=== PATIENT | male | born 1995 | race Caucasian/White ===

== ENCOUNTER 2025-01-19 19:20 | Emergency (ER) | payer OTHER, SELFPAY ==
[2025-01-19 19:26] VITALS: BP 162/96; PULSE 85; RESP 16; TEMP 36.7; O2SAT 98; BMI 37.3
--- NOTE | 2025-01-19 19:36 | CRLHL7_ITS ---
For Patients: As a result of the Cures Act, medical imaging exams and procedure reports are released immediately into your electronic medical record. You may view this report before your referring provider. If you have questions, please contact your health care provider. INDICATION: Left-sided rib pain. TECHNIQUE: Chest and left ribs three views. COMPARISON: None. FINDINGS: No pneumothorax or pleural effusion. Lungs are clear. Cardiac and mediastinal contours are within normal limits. Upper abdomen and osseous structures as imaged show no acute abnormality. No acute displaced left rib fracture. IMPRESSION: No evidence of acute cardiopulmonary disease or displaced left rib fracture. Dictated by Kory Bonner MD @ 01/19/2025 8:04:14 PM (Electronically Signed)
--- OUTSIDE RECORDS SUMMARY | 2025-01-19 20:06 | XMS_ITS | Clinical Summary ---
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 180 mL 12 2 Active CPAPIndications:O SA (obstructive sleep apnea),Snoring New CPAP machine for home use at pressure: 5-18 cmw , Heated humidifier x 1 q 5 yr, Humidifier chamber x 1 q 6 mo, Full face mask x1 q 3mos, with cushion x 1 q mo, Heated tubing x 1 q 3 mo, Headgear x 1 q 6 mo, Filters: Disposable x 2 q mo non-disposable filters x1 q 6mo, Length of Need: 99 months, Frequency of use: Daily 1 Each 11 3 Active budesonide-formot Lynette (Symbicort) 160-4.5 mcg/actuation (160-4.5 mcg each actuation) inhalerIndication s:Moderate persistent asthma without complication (HC) Inhale 2 Puffs by mouth two times daily. 1 Each 4 3 Active cetirizine (ZYRTEC) 10 mg tabletIndications :Hayfever TAKE 1 TABLET BY MOUTH ONCE DAILY. 90 Tablet 1 4 Active lisinopriL (PRINIVIL; ZESTRIL) 20 mg tabletIndications :Hypertension, unspecified type Take 1 Tablet (20 mg) by mouth once daily. 90 Tablet 3 4 Active albuterol HFA (ProAir HFA) 90 mcg/actuation inhalerIndication s:Moderate persistent asthma with exacerbation (HC) Inhale 1-2 Puffs by mouth every 6 hours if needed for Shortness of Breath 1st choice. 1 Each 12 4 Active minocycline (MINOCIN) 100 mg capsuleIndication s:Recurrent boils Take 1 Capsule (100 mg) by mouth two times daily. 180 Capsule 3 4 Active gabapentin (NEURONTIN) 300 mg capsuleIndication s:Lumbar radiculopathy Take 1 Capsule (300 mg) by mouth at bedtime. 30 Capsule 2 4 Active tiZANidine (ZANAFLEX) 4 mg tabletIndications :Lumbar radiculopathy Take 1 Tablet (4 mg) by mouth every 8 hours if needed for Muscle Spasm. 24 Tablet 1 4 Active celecoxib (CELEBREX) 200 mg capsuleIndication s:Lumbar radiculopathy Take 1 Capsule (200 mg) by mouth two times daily with meals. 60 Capsule 1 4 Active hydrOXYzine HCL (ATARAX) 25 mg tabletIndications :Rash Take 1 Tablet (25 mg) by mouth every 6 hours if needed for Itching. 25 Tablet 4 Active triamcinolone (ARISTOCORT; KENALOG) 0.1 % creamIndications: Rash Apply topically to affected area(s) three times daily. 80 g 4 Active lisinopriL (PRINIVIL; ZESTRIL) 20 mg tabletIndications :Hypertension, unspecified type Take 1 Tablet (20 mg) by mouth once daily. 30 Tablet 5 Active azithromycin (Zithromax Z-Matteo) 250 mg tabletIndications :Bronchitis with bronchospasm Take 500 mg (2 tabs) by mouth on day 1, then 250 mg (1 tab) daily for days 2-5. 6 Tablet 5 Active benzonatate (TESSALON) 100 mg capsuleIndication s:Bronchitis with bronchospasm Take 1 Capsule (100 mg) by mouth 3 times daily if needed for Cough. 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 Hernandez Cornea abrasion 12/09/2014 09/25/2017 Encounters Date Type Department Care Team Description 10/26/2024 9:30 AM DIRECTOR PROCESS Ancillary Procedure [facility] [address] [place] [address] 10/26/2024 8:35 AM DIRECTOR PROCESS Office Visit [facility] [address] [place] [address] Eliza Soto PA URI (Cough, chest congestion and high blood pressure x week ) 10/26/2024 Travel from Last 3 Months Immunizations Immunization Administration Dates Next Due DTP 03/04/1998, 7,03/26/1997,01/24 DTaP 05/16/2009,01/22/2002 Hepatitis A (Peds) 04/16/2015,10/02/2014 Hepatitis B (Peds) 05/27/1997,01/24/1997, 997 Hib Conjugate, Unspecified 03/04/1998,,03/26/1997,01/24 Human Papilloma Virus Vaccine 04/16/2015, 015,10/02/2014 Inactivated Polio Vaccine 01/22/2002 Influenza, IIV3 (Age >=3 years) 10/08/2002,11/04 /2002 Influenza, IIV4 08/23/2018,10/02/2014 MENINGOCOCCAL VACCINE 2 VIAL 2MO-55YO (MENVEO) 10/02/2014 MMR 05/16/2009,03/04/1998 Oral Polio Vaccine 03/04/1998,03/26/1997, 997 Pneumococcal Conj 20-valent (Prevnar 20) 03/29/2024 Td (Age >=7 Years) 04/13/2019 Tdap 10/02/2014,05/16/2009 Varicella Vaccine 05/16/2009,01/13/1999 Family History Medical History Relation Name Comments Hypertension Father Alzheimer's disease Maternal Grandmother Hypertension Mother Relation Name Status Comments Father Alive Maternal Grandfather Alive Maternal Grandmother Mother Alive Paternal Grandfather Paternal Grandmother Alive Social History Tobacco Use Types Packs/Day Years Used Date Smoking Tobacco: Former Smokeless Tobacco: Never Tobacco Cessation:Counseling Given: Yes Alcohol Use Standard Drinks/Week Comments Yes 0 (1 standard drink = 0.6 oz pur e alcohol) rarelly PHQ-2 Answer Date Recorded PHQ-2 TOTAL SCORE 0 02/15/2023 Social Connections Answer Date Recorded Do you often feel lonely or isolated from those around you? 0 03/29/2024 Financial Resource Strain Answer Date R ecorded Difficulty of Paying Living Expenses 3 03/29/2024 Difficulty of Paying Living Expenses Not on file 03/29/2024 Food Insecurity Answer Date Recorded Do you worry your food will run out before you are able to buy more? 1 03/29/2024 Transportation Needs Answer Date Record ed Does lack of transportation keep you from medica l appointments? 1 03/29/2024 Does lack of transportation keep you from work, meetings or getting things that you need? 1 03/29/2024 Housing Stability Answer Date Recorded What is your housing situation today? 1 03/29/2024 Utilities Answer Date Recorded Do you have trouble paying f or utilities (for example, heat, electricity, water, phone)? 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 Not on file Not on file Not on file Obstetrics History Last Filed Vital Signs Vital Sign Reading Time Taken Comments Blood Pressure 150/90 10/26/2024 8:38 AM DIRECTOR PROCESS Pulse 107 10/26/2024 8:38 AM DIRECTOR PROCESS Temperature 36.6 C (97.8 F) 10/26/2024 8:38 AM DIRECTOR PROCESS Respiratory Rate 18 12/08/2023 12:43 PM DIRECTOR PROCESS Oxygen Saturation 100% 10/26/2024 8:38 AM DIRECTOR PROCESS Inhaled Oxygen Concentration - - Weight 119.3 kg (263 lb) 10/26/2024 8:38 AM DIRECTOR PROCESS Height 179 cm (5' 10.47) 08/04/2023 9:12 AM CDT Body Mass Index 37.23 08/04/2023 9:12 AM CDT Plan of Treatment Health Maintenance Due Date Last Done Comments HIV for age 15-65 2011 Hepatitis C screening for ag e 18-79 2014 Depression screening for age 12+ 02/16/2024 02/15/2023, 01/11/2022, 01/06/2021, Additional history exists COVID-19 vaccine series ( season) 2024 12/23/2021, 11/12/2021 Influenza Vaccine (#1) 2024 8, 10/02/2014, 10/08/2002, Additional history exists BMI (ht and wt on same day) for age 18+ 08/04/2024 08/04/2023, 07/25/2023, 02/15/2023, Additional history exists Tetanus booster 04/13/2029 04/13/2019, 09/23, 05/16/2009 Tdap Completed 10/02/2014, 05/16/2009 Pneumococcal series for age 6-49 Completed 03/29/20 24 Procedures Procedure Name Priority Date/Time Associated Diagnosis Comments XR CHEST 2 VIEWS PA AND LATERAL CLIFF 10/26/2024 9:21 AM DIRECTOR PROCESS Bronchitis with bronchospasm Moderate persistent asthma with exacerbation (HC) Wheezing from Last 3 Months Results * XR CHEST 2 VIEWS PA AND LATERAL (10/26/2024 9:21 AM DIRECTOR PROCESS) Anatomical Region Laterality Modality CHEST, THORAX, Lung, HEART Compu cipriano Radiography 10/26/2024 2:16 PM DIRECTOR PROCESS Impressions 10/26/2024 2:16 PM DIRECTOR PROCESS No acute findings. Dictated by Prashanth Correa MD @ 10/26/2024 2:16:21 PM (Electronically Signed) Narrative 10/26/2024 2:16 PM DIRECTOR PROCESS For Patients: As a result of the Cures Act, medical imaging exams and procedure reports are released immediately into your electronic medical record. You may view this report before your referring provider. If you have questions, please contact your health care provider. INDICATION: Bronchitis with bronchospasm TECHNIQUE: Chest 2 views COMPARISON: 12/08/2023 FINDINGS: Cardiovascular and mediastinum: Heart size and vasculature are normal in caliber and appearance. Lungs and pleural spaces: Lungs are clear. No sign of infiltrate or mass. No sign of pleural effusion. No pneumothorax. Bones and soft tissues: No significant findings. Procedure Note Prashanth Correa MD - 10/26/2024 For Patients: As a result of the Cures Act, medical imagingexams and procedure reports are released immediately into your electronicmedical record. You may view this report before your referring provider.If you have questions, please contact your health care provider. INDICATION: Bronchitis with bronchospasm TECHNIQUE: Chest 2 views COMPARISON: 12/08/2023 FINDINGS: Cardiovascular and mediastinum: Heart size and vasculature are normal incaliber and appearance. Lungs and pleural spaces: Lungs are clear. No sign of infiltrate ormass. No sign of pleural effusion. No pneumothorax. Bones and soft tissues: No significant findings. IMPRESSION: No acute findings. Dictated by Prashanth Correa MD @ 10/26/2024 2:16:21 PM (Electronically Signed) [facility] Final Result from Last 3 Months Insurance [employer] Care Teams Electric Razor Mechanic Relationship Specialty Start Date End Date Tara Mcarthur MD [address] [place] [address] PCP - General Family Practice 02/21/24
[2025-01-19 20:19] LABS: PCR FLU A Negative PCR FLU A (Negative); PCR FLU B Negative PCR FLU B (Negative); PCR RSV Negative PCR RSV (Negative); SARS PCR* Negative SARS-CoV-2 (Negative)
[2025-01-19 20:37] VITALS: BP 154/85; PULSE 80; RESP 16; TEMP 36.7; O2SAT 98
[2025-01-19 20:38] VITALS: BP 154/85; PULSE 80; RESP 16; TEMP 36.7
--- NOTE | 2025-01-19 20:38 | ED_ITS ---
HPI - Chest Pain General Date Seen: 01/19/25 Chief Complaint: Cough Stated Complaint: L rib pain Time Seen by Provider: 01/19/25 19:29 Source: patient Mode of arrival: ambulatory Limitations: no limitations History of Present Illness HPI narrative: Patient is a very nice 29-year-old gentleman who was coughing yesterday he has been sick with a cough for last 2-3 days, using his inhaler 4 to 5 times a day, and yesterday while he was having a coughing jag noted left-sided chest discomfort, well he takes a deep breath in. ER to rule out any significant problems with this. Denies a fevers chills, has a history of asthma, and has an inhaler that he feels is approximately half full. Says he has no shortness of breath with this, has been on asthma medications is almost his entire life, with previous at exacerbations with prednisone. Is a nonsmoker, no history of intubations or other issues. Prior episodes: Yes Risk Factors Coronary artery disease risk factors: none Thoracic aortic dissection risk factors: none Related Data Home Medications ?Medication ?Instructions ?Recorded ?Confirmed cetirizine .ROUTE 01/19/25 lisinopril 20 mg tablet 20 mg PO DAILY 01/19/25 01/19/25 Allergies Allergy/AdvReac Type Severity Reaction Status Date / Time cefprozil (From Cefzil) AdvReac Verified 01/19/25 19:28 Review of Systems Status of ROS Reports: 10 or more systems reviewed and unremarkable except as noted in History and below [facility] Medical History Hypertension ?I10 - Essential (primary) hypertension (ICD-10) Surgical History No significant past surgical history Social History Smoking Status: Never smoker Second hand tobacco smoke exposure: No How often do you have a drink containing alcohol: never AUDIT-C Alcohol total score: 0 Non-prescribed substance use: denies use Exam Narrative Exam Narrative: On examination he is in no apparent distress. Pleasant and alert. Pupils equal round reactive to light there is no scleral icterus redness TMs are normal oropharynx normal, neck is supple chest is clear bilaterally with occasional expiratory wheezes noted. No signs respiratory distress, heart sounds normal, speaking to me in full sentences, no leg swelling no edema, negative Homans sign. Const Vital Signs, click to edit/add: Vital Signs - 24 hr 01/19/25 19:26 Temperature 98.0 F Pulse Rate [Pulse Oximeter] 85 Respiratory Rate 16 Blood Pressure [Left Upper Arm] 162/96 H Pulse Oximetry 98 Oxygen Delivery Method Room Air Documenting provider has reviewed patient's vital signs: yes Course Course ED Course: I discussed with him, that I do not see any evidence of an abnormality on chest x-ray nor did the radiologist, I do recommend that he use some prednisone for his wheezing, says he thinks he maybe has some anxiety in feel so much better and does not have any chest pain currently. Think it be reasonable let him go home, he is at low risk to have a pulmonary embolism or any coronary disease secondary to this. Vital Signs Vital signs: Initial Vital Signs Temperature 98.0 F 01/19/25 19:26 Temperature Source Temporal Artery Scan 01/19/25 19:26 Pulse Rate 85 01/19/25 19:26 Respiratory Rate 16 01/19/25 19:26 Respiratory Effort Normal, Spontaneous, Non-Labored 01/19/25 19:26 Respiratory Depth Normal 01/19/25 19:26 Respiratory Pattern Normal 01/19/25 19:26 Blood Pressure 162/96 H 01/19/25 19:26 Blood Pressure Mean 118 H 01/19/25 19:26 Blood Pressure Position Sitting 01/19/25 19:26 Pulse Oximetry 98 01/19/25 19:26 Oxygen Delivery Method Room Air 01/19/25 19:26 Vital Signs Temperature 98.0 F 01/19/25 19:26 Pulse Rate 85 01/19/25 19:26 Respiratory Rate 16 01/19/25 19:26 Blood Pressure 162/96 H 01/19/25 19:26 Pulse Oximetry 98 01/19/25 19:26 Oxygen Delivery Method Room Air 01/19/25 19:26 Temperature 98.0 F 01/19/25 19:26 Pulse Rate 85 01/19/25 19:26 Respiratory Rate 16 01/19/25 19:26 Blood Pressure 162/96 H 01/19/25 19:26 Pulse Oximetry 98 01/19/25 19:26 Oxygen Delivery Method Room Air 01/19/25 19:26 MDM - Chest Pain Medical Records Data Attestation: I reviewed the patient's medical records. Lab Data Attestation: I reviewed the patient's lab results. Labs: Lab Results 01/19/25 Range/Units 19:39 SARS-CoV-2 (PCR) Negative SARS-CoV-2 (Negative) Influenza Type A (PCR) Negative PCR FLU A (Negative) Influenza Type B (PCR) Negative PCR FLU B (Negative) RSV (PCR) Negative PCR RSV (Negative) Imaging Data Chest x-ray: Attestation: I have reviewed the pertinent imaging results. My impression: No pneumothorax, no infiltrate, no abnormality seen. Radiologist's impression: [place] [address] Diagnostic Imaging Report Patient: Kofi Barnes MR#: [id number] : 1995 Acct:[id number] Loc: ED Service Date: 01/19/[address]: Ordering Physician: Hector Spangler M.D. Date of Service: 01/19/25 Procedure(s): XR ribs LT min 3V w CXR1V Accession Number(s): [id number] cc: Hector Spangler M.D.~ For Patients: As a result of the Cures Act, medical imaging exams and procedure reports are released immediately into your electronic medical record. You may view this report before your referring provider. If you have questions, please contact your health care provider. INDICATION: Left-sided rib pain. TECHNIQUE: Chest and left ribs three views. COMPARISON: None. FINDINGS: No pneumothorax or pleural effusion. Lungs are clear. Cardiac and mediastinal contours are within normal limits. Upper abdomen and osseous structures as imaged show no acute abnormality. No acute displaced left rib fracture. IMPRESSION: No evidence of acute cardiopulmonary disease or displaced left rib fracture. Dictated by Kory Bonner MD @ 01/19/2025 8:04:14 PM (Electronically Si Discharge Plan Discharge Clinical Impression: Rib pain on left side Patient Disposition: Home w/ Parent or Adult Condition: Stable Instructions: Rib Contusion (ED) Additional Instructions: Home rest use of Tylenol ibuprofen, take your inhaler as directed, along with the prednisone. Follow-up of any signs symptoms of worsening. your swabs are negative. Activity Level: Light activity Prescriptions: No Action lisinopril 20 mg tablet 20 mg PO DAILY cetirizine [Zyrtec] .ROUTE Follow Up/Referrals: Tara Mcarthur MD [Primary Care Provider] - Stand Alone Forms: [employer] Info Instructions
== END 2025-01-19 20:38 | disposition home or self-care (01) ==
PROVIDERS: Emergency Provider Family Medicine; PCP Family Medicine
DX: R05.9 Cough, unspecified (principal); R07.81 Pleurodynia
CPT/HCPCS: 71101; 87631; 99283; 99284

== ENCOUNTER 2025-03-10 20:16 | Outpatient (CLI) | payer OTHER, SELFPAY | END 2025-03-10 20:17 | disposition home or self-care (01) | LOC: SLEEP 20:57 | PROVIDERS: PCP Family Medicine; Visit Provider Internal Medicine | DX: G47.33 Obstructive sleep apnea (adult) (pediatric) (principal) | CPT/HCPCS: 95810 ==